=== PATIENT | male | born 1975 | race African-American/Black ===

== ENCOUNTER 2023-09-16 10:32 | Emergency (ER) | payer OTHER ==
[2023-09-16 10:42] VITALS: BP 147/93; PULSE 79; RESP 18; TEMP 98.7; BMI 29.5
== END 2023-09-16 12:54 | disposition home or self-care (01) ==
LOC: JERFT 10:32
DX: S22.41XA Multiple fractures of ribs, right side, initial encounter for closed fracture (principal); R06.02 Shortness of breath; W17.89XA Other fall from one level to another, initial encounter; Y99.0 Civilian activity done for income or pay
CPT/HCPCS: 99283-25